=== PATIENT | female | born 1995 | race Caucasian/White ===

== ENCOUNTER 2024-03-15 16:40 | Inpatient (IN) | payer BC, SELFPAY ==
[2024-03-15] VITALS (12 sets, daily range): BP systolic 133–173; BP diastolic 83–102; PULSE 84–108; RESP 14–18; TEMP 36.4–36.8; O2SAT 98–100; BMI 34.7
--- NOTE | 2024-03-15 17:15 | PCM.HP.OB ---
HPI - General General Date of Admission: 03/15/24 HPI Narrative ASTRID ARCINIEGA, is a 28 F @ 38.5 weeks who presents for medically indicated induction of labor due to elevated blood pressures in the office. Patient was seen for routine visit had blood pressures in the office in severe range. Patient denies headaches, visual changes. She does have some swelling of the lower extremities. No vaginal bleeding, no leaking fluid no regular contractions. She had no protein appreciated in her urine dip. Patient was sent over for labor induction for gestational hypertension versus preeclampsia. Labs to be drawn on admission. NST FHR Rate Baby A Baseline: 135 Variability:: Moderate Accelerations:: 15 x 15 Decelerations:: None NST Reactive:: Yes FHR Category:: Category I Uterine Activity:: 2-3min Vital Signs Vital Signs Vital Signs: 03/15/24 17:07 03/15/24 17:07 03/15/24 17:12 Pulse Rate 108 H 103 H Pulse Ox 98 03/15/24 17:12 Pulse Rate Pulse Ox 98 Physical Exam Narrative /-2 Ext: LE swelling +2, DTR +2 Const alert and oriented x3 General Appearance: cooperative HEENT normocephalic GI GI Narrative: Gravid, non tender to palpation. OB / External & Speculum: external exam normal Extremity normal to inspection Skin no rashes or lesions noted Neuro oriented x3 and CN's II-XII intact bilaterally Psych Appearance: grossly normal Labs Labs Labs: No Data to Display Assessment & Plan (1) 38 weeks gestation of : (2) Pre-eclampsia affecting , antepartum: (3) Swelling of lower extremity during : QUALIFIERS: Trimester: third trimester Qualified Code(s): O12.03 - Gestational edema, third trimester PLAN: Plan Admit to L&D Montior FHR/TOCO Epidural if requested for pain Monitor VS Anticipate Dupree/pitocin PRE E labs- magnesium and Hypertensive protocol if indicated
[2024-03-15] MEDS: Lactated Ringers 1,000 ML 50 ML IV (17:25)
[2024-03-15] MEDS: 0.9% Normal Saline Single 100 ML IV.SOLN. INTRA-UTER (17:30)
--- NOTE | 2024-03-15 17:35 | PCM.PN.BLA ---
Progress Note transcervical arteaga placed without difficulty. Pt resting comfortably in bed. will start Pitocin.
[2024-03-15 17:54] LABS: Protein, Urine (Random) 18.9 mg/dL (<11.9); Protein:Creat Ratio 791 mg/g CRE (0-200)
[2024-03-15] MEDS: Oxytocin 15 Units/NS 250ml 15 UNITS/250 ML IV.SOLN 2 UNITS IV (17:58)
[2024-03-15 18:01] LABS: Absolute Lymphocyte Count 1.44 X10^3/uL (0.83-4.51); Absolute Neutrophil Count 7.6 X10^3/uL (2.0-7.7); Basophil# 0.02 X10^3/uL; Basophil% 0.2 % (0-1); Eosinophil# 0.05 X10^3/uL; Eosinophils% 0.5 % (0-5); Hematocrit 34.4 % (37-47); Hemoglobin 11.6 g/dL (12.0-15.0); Lymphocyte # 1.44 X10^3/ul (0.83-4.51); Lymphocyte % 14.4 % (19-41); Mean Corp Hgb Conc 33.7 g/dL (32-36); Mean Corpuscular Hgb 30.3 pg (27.0-32.0); Mean Corpuscular Volume 89.8 fL (81-99); Mean Platelet Vol. 9.7 fl (6.2-12.0); Monocyte# 0.88 X10^3/uL; Monocyte% 8.8 % (0-10); NRBC Flagged by Analyzer 0 % (0-5); Neutrophil # 7.55 X10^3/uL (2.7-7.7); Neutrophil % 75.5 % (47-70); Platelet Count 275 K/mm3 (150-450); RBC Distribution Width CV 15.9 % (11.6-14.6); Red Blood Count 3.83 M/mm3 (4.2-5.4)
[2024-03-15 18:31] LABS: AST(SGOT) 19 U/L (15-37); Alanine Aminotransfer ALT/SGPT 14 U/L (13-56); Creatinine, Serum 0.57 mg/dL (0.55-1.02); EST Glomerular Filtration Rate 132 mL/min (>60); Est Glom Filt Rate - Afr Amer 159 mL/min (>60); Estimated Creatinine Clearance 152.64 ml/min; Uric Acid 5.4 mg/dL (2.6-6.0)
[2024-03-15 18:45] LABS: Syphilis Antibodies Non-reactive
[2024-03-15] MEDS: NIFEdipine 30 MG Tablet PO (20:55)
[2024-03-16] VITALS (66 sets, daily range): BP systolic 114–173; BP diastolic 56–96; PULSE 86–115; RESP 14–18; TEMP 36.4–37.6; O2SAT 91–100
--- NOTE | 2024-03-16 08:24 | PCM.PN.BLA ---
Progress Note at bedside to check on pt. doing well without complaints. Physical Exam Const alert and no apparent distress General Appearance: comfortable Narrative: Cvx 3/60/-2, vertex and head well applied. Assessment & Plan Assessment/Plan (1) 38 weeks gestation of : PLAN: Discussed AROM and IUPC and patient agreeable. AROM performed in usual sterile fashion with return of clear fluid. IUPC placed easily. Category 1 tracing. BP's mild range. Pt plans epidural. Cont current management. (2) Pre-eclampsia affecting , antepartum:
[2024-03-16] MEDS: Lactated Ringers 1,000 ML 50 ML IV (08:48)
[2024-03-16] MEDS: LACTATED RINGERS 500 ML 999 ML IV ×2 (09:29→18:26)
[2024-03-16] MEDS: fentaNYL-bupivacaine (epidural) 100 ML BAG EPIDURAL ×3 (10:33→20:27)
[2024-03-16] MEDS: Ondansetron 4 MG/2 ML Vial IV ×2 (14:07→18:17)
[2024-03-16] MEDS: 0.9% Saline Lock 10 ML Syringe IV ×2 (14:07→18:17)
[2024-03-16] MEDS: Lactated Ringers 1,000 ML 200 ML IV ×3 (14:38→23:47)
[2024-03-16] MEDS: Oxytocin 15 Units/NS 250ml 15 UNITS/250 ML IV.SOLN 12 UNITS IV (15:15)
--- NOTE | 2024-03-16 16:50 | PCM.PN.BLA ---
Progress Note at bedside to check on pt. feeling pressure in her bottom. otherwise no complaints. Physical Exam Const alert and no apparent distress General Appearance: comfortable HEENT normocephalic Resp normal respiratory effort Narrative: Cvx 8/80/0, caput noted, more cervix noted along patient's right side. Assessment & Plan Assessment/Plan (1) 38 weeks gestation of : PLAN: Pad with scant dark red blood present on pad. Discussed concern that baby is asynclitic on exam. RN to continue with position changes. Scalp stim present with cervical exam. Blood pressures normal to mild range. Cont current management. (2) Pre-eclampsia affecting , antepartum: (3) Swelling of lower extremity during : QUALIFIERS: Trimester: third trimester Qualified Code(s): O12.03 - Gestational edema, third trimester
[2024-03-16] MEDS: Terbutaline 1 MG/ML Vial 0.25 MG SC (18:37)
--- NOTE | 2024-03-16 20:21 | PCM.PN.BLA ---
Progress Note At bedside to check on pt. She is now comfortable with second epidural. She offers no other complaints. Assessment & Plan Assessment/Plan (1) Swelling of lower extremity during : QUALIFIERS: Trimester: third trimester Qualified Code(s): O12.03 - Gestational edema, third trimester (2) Pre-eclampsia affecting , antepartum: (3) 38 weeks gestation of : PLAN: Patient is now comfortable after placement of second epidural. Cvx 8/90/0 and scant bloody show on pad. Pitocin has been off given uncontrolled pain and high resting uterine tone with ctx's q 1-2 min. Positive scalp stim on exam. Discussed restarting Pitocin. BP normal to mild range.
[2024-03-16] MEDS: Acetaminophen 500 MG Tablet PO (21:30)
[2024-03-16] MEDS: NIFEdipine 30 MG Tablet PO (22:01)
[2024-03-17] VITALS (24 sets, daily range): BP systolic 106–156; BP diastolic 71–104; PULSE 78–120; RESP 16–22; TEMP 36.1–37.1; O2SAT 93–100
--- NOTE | 2024-03-17 00:42 | PCM.PN.BLA ---
Progress Note at bedside to recheck pt. she is comfortable and offers no complaints. Assessment & Plan Assessment/Plan (1) Swelling of lower extremity during : QUALIFIERS: Trimester: third trimester Qualified Code(s): O12.03 - Gestational edema, third trimester (2) Pre-eclampsia affecting , antepartum: (3) 38 weeks gestation of : PLAN: Plan Cvx remains 8/80/0 and caput noted. The patient has now been 8 cm for 8 hours given Pitocin was turned off for 2 hours. Discussed recommendation for a section given arrest of descent. Discussed r/b/a section. Patient requests time to discuss with her .
--- NOTE | 2024-03-17 01:24 | PCM.PN.BLA ---
Progress Note at bedside to check on pt. she is doing well and reasonably anxious about a section. Assessment & Plan Assessment/Plan (1) Swelling of lower extremity during : QUALIFIERS: Trimester: third trimester Qualified Code(s): O12.03 - Gestational edema, third trimester (2) Pre-eclampsia affecting , antepartum: (3) 38 weeks gestation of : (4) Failure to progress in labor: PLAN: Discussed section and questions answered. Discussed r/b/a section. Patient desires to proceed. Ancef and Azithromycin ordered pre op. (5) Arrested labor:
[2024-03-17] MEDS: Cefazolin 2 GM in 0.9% Normal Saline (100mL Bag) 100 ML IV (01:33)
[2024-03-17] MEDS: Azithromycin 500 MG in Dextrose 5%-Water (250mL Bag) 250 ML 250 MG IV (02:52)
--- NOTE | 2024-03-17 02:59 | OP.PCM_ITS ---
Problems Associated Problem List Diagnoses (1) Arrested labor: (2) Failure to progress in labor: (3) Swelling of lower extremity during : (4) Pre-eclampsia affecting , antepartum: (5) 38 weeks gestation of : Report of Operation Date of Procedure: 03/17/24 Pre-Operative Diagnosis: 38 week gestation, pre eclampsia, induction of labor planned, failure to progress Post-Operative Diagnosis: As above Surgery/Procedure Performed:: PLTCS via pfannenstiel incision Description of Surgical Findings:: VMI in cephalic presentation. Normal appearing placenta with 3 VC. Normal appearing uterus and bilateral adnexa. Surgeon: Michelle Sharma automobile drivers: Yon BARRIENTOS Type of Anesthesia: Epidural Special Medications: None Specimen's removed: Placenta Drains: Dupree Estimated Blood Loss (mL): 700 Fluids Replaced: 1000 mL Description of Procedure: Indications: Arrest of dilation at 8 cm Procedure: Patient was taken to the operating room and prepped and draped in dorsal supine position with a leftward tilt in usual sterile fashion. After confirming adequate anesthesia, a pfannenstiel skin incision was made with a scalpel and carried down to the underlying layer of fascia. The fascia was incised in the midline and extended laterally using bartholomew scissors. The fascia was then dissected off the rectus muscles both cephalad and caudad using sharp dissection. The rectus muscles were in the midline. The peritoneum was entered bluntly with good visualization of the bladder. The peritoneal incision was extended with traction laterally. A bladder blade was inserted. A low transverse incision was made on the uterus with a scalpel. The uterine incision was extended with traction cephalad and caudad. The head was elevated out of the pelvis and delivered easily in flexed position. The shoulders and body of the were delivered without traction, force, or delay. The cord was clamped and cut immediately and handed off to awaiting nursery staff. The placenta was removed with manual extraction. The uterus was cleared of all clot and debris. The hysterotomy was closed with 1-0 Vicryl in a running locked fashion. Several additional figure of eight sutures were placed along the hysterotomy using 1-0 Vicryl to achieve hemostasis. The uterus was placed back into the abdomen. Arrista was placed over the lower uterus. Hemostasis was confirmed. The peritoneum was closed with 3-0 Vicryl in a running fashion. The subfascial space was examined and noted to be hemostatic. The fascia was closed with stratafix in a running fashion. The subcutaneous space was irrigated and noted to be hemostatic. The subcutaneous space was reapproximated using 3-0 Vicryl. The skin was closed with 4-0 Monocryl in a subcuticular fashion. A silver dressing was placed. Instrument, sponge, and needle counts were correct and the patient was taken to the recovery room in stable condition. Yon BARRIENTOS was present and assisted with draping the patient, delivery and closure. Grafts/Implants Used: None Procedure Start Time: 01:53 Procedure Stop Time: 02:47 Complications None Admit VTE Documentation VTE Present on Admission: No VTE Mechan Device Prophylaxis: SCD's
[2024-03-17] MEDS: Oxytocin 15 Units/NS 250ml 15 UNITS/250 ML IV.SOLN 83 UNITS IV (03:20)
[2024-03-17] MEDS: Ketorolac 30 MG/ML Syringe IV ×4 (03:33→22:01)
[2024-03-17] MEDS: Acetaminophen 500 MG Tablet 1000 MG PO ×4 (03:34→22:01)
[2024-03-17] MEDS: Lactated Ringers 1,000 ML 100 ML IV ×2 (06:24→13:39)
[2024-03-17] MEDS: Senna/Docusate Sodium 1 Tablet PO (09:14)
[2024-03-17 10:37] LABS: ALB/GLOB Ratio 0.5 RATIO (0.9-2.4); AST(SGOT) 22 U/L (15-37); Alanine Aminotransfer ALT/SGPT 13 U/L (13-56); Albumin, Serum 1.7 g/dL (3.2-5.0); Alkaline Phosphatase 164 U/L (45-117); Anion Gap 6 (5-15); BUN 13 mg/dL (7-18); Calcium,Total 8.2 mg/dL (8.5-10.1); Chloride 108 mmol/L (98-107); Creatinine, Serum 1.08 mg/dL (0.55-1.02); EST Glomerular Filtration Rate 63 mL/min (>60); Est Glom Filt Rate - Afr Amer 76 mL/min (>60); Estimated Creatinine Clearance 80.56 ml/min; Globulin 3.2 g/dL (2.2-4.2); Glucose 135 mg/dL (74-106); Potassium 4.1 mmol/L (3.5-5.1); Protein, Total 4.9 g/dL (6.4-8.2); Sodium Level 136 mmol/L (136-145)
[2024-03-17] MEDS: 0.9% Saline Lock 10 ML Syringe IV ×2 (17:28→22:01)
[2024-03-17] MEDS: NIFEdipine 30 MG Tablet PO (20:09)
[2024-03-18] VITALS: BP 118/72; PULSE 89; RESP 16; TEMP 36.3; O2SAT 96
[2024-03-18 02:55] VITALS: BP 111/60; PULSE 77; RESP 16; TEMP 36.4; O2SAT 97
[2024-03-18] MEDS: Ibuprofen 600 MG Tablet PO ×4 (02:58→23:01)
[2024-03-18] MEDS: Acetaminophen 500 MG Tablet 1000 MG PO ×3 (05:00→19:02)
[2024-03-18 05:21] LABS: Hematocrit 27.9 % (37-47); Hemoglobin 9.3 g/dL (12.0-15.0); Mean Corp Hgb Conc 33.3 g/dL (32-36); Mean Corpuscular Hgb 30.8 pg (27.0-32.0); Mean Corpuscular Volume 92.4 fL (81-99); Mean Platelet Vol. 9.4 fl (6.2-12.0); Platelet Count 177 K/mm3 (150-450); RBC Distribution Width CV 16.5 % (11.6-14.6); RBC Distribution Width SD 56.5 fl (35.1-43.9); Red Blood Count 3.02 M/mm3 (4.2-5.4); White Blood Count 15.1 K/mm3 (4.4-11.0)
[2024-03-18 07:45] VITALS: BP 124/77; PULSE 83; RESP 16; TEMP 36.6; O2SAT 98
--- NOTE | 2024-03-18 08:43 | PN.OBGYN_ITS ---
Subjective Subjective Feeling good. Sore but pain controlled. Ambulating and voiding without difficulty. Breast feeding. BP stable on procardia Objective Data Objective Data Vital Signs: Vital Signs Temp Pulse Resp BP Pulse Ox O2 Del Method 97.8 F 83 16 124/77 H 98 Room Air 03/18/24 07:45 03/18/24 07:45 03/18/24 07:45 03/18/24 07:45 03/18/24 07:45 03/18/24 07:45 Oxygen Delivery Method Room Air Weight: 88.9 kg Body Mass Index (BMI) 34.7 Intake & Output: Intake and Output for Last 24 Hours 03/16/24 03/17/24 03/18/24 23:59 23:59 23:59 Intake Total 4722.46 / 4722.46 2708.73 / 2708.73 Output Total 275 / 275 2400 / 2400 601 / 601 Balance 4447.46 / 4447.46 308.73 / 308.73 -601 / -601 Lab / Micro Data 03/18/24 05:04 03/17/24 09:30 Labs: Laboratory Results - last 24 hr 03/17/24 09:30: Sodium 136, Potassium 4.1, Chloride 108 H, Carbon Dioxide 22.0, Anion Gap 6, BUN 13, Creatinine 1.08 H, Estim Creat Clear Calc 80.56, Est GFR (MDRD) Af Amer 76, Est GFR (MDRD) Non-Af 63, BUN/Creatinine Ratio 12.0, Glucose 135 H, Calcium 8.2 L, Total Bilirubin 2.20 H, AST 22, ALT 13, Alkaline Phosphatase 164 H, Total Protein 4.9 L, Albumin 1.7 L, Globulin 3.2, A lbumin/Globulin Ratio 0.5 L 03/18/24 05:04: WBC 15.1 H, RBC 3.02 L, Hgb 9.3 L, Hct 27.9 L, MCV 92.4, MCH 30.8, MCHC 33.3, RDW Std Deviation 56.5 H, RDW Coeff of Min 16.5 H, Plt Count 177, MPV 9.4 ROS Constitutional Constitutional: Denies fatigue, fever(s) or malaise Eyes Eyes: Denies change in vision ENT HEENT: Denies dizziness or headache(s) Cardiovascular Cardiovascular: Denies chest pain, dyspnea or lightheadedness Respiratory/Chest Respiratory/Chest: Denies cough or dyspnea Gastrointestinal Gastrointestinal: Denies change in bowel habits Genitourinary Genitourinary: Denies burning urination or genital lesions Integumentary Integumentary: Denies rash Neurologic Neurologic: Denies confusion, dizziness, headache(s), numbness or weakness Physical Exam Const alert and no apparent distress General Appearance: cooperative HEENT normocephalic Resp normal respiratory effort Cardio regular rate GI soft to palpation GI Narrative: gravid, nontender, appropriate for gestational age Extremity no calf tenderness General Extremity: edema Skin no wounds Rashes: No rashes noted Psych activity/motor behavior normal Assessment & Plan (1) S/P : (2) Pre-eclampsia affecting , antepartum:
--- NOTE | 2024-03-18 08:43 | DS.PCM_ITS ---
Providers Date of Admission: 03/15/24 Primary Care Physician: No Primary Care Phys Reason For Visit: C SECTION Diagnosis Discharge Diagnosis (1) Arrested labor: Status: Acute Code(s): O62.1 - Secondary uterine inertia (2) Failure to progress in labor: Status: Acute Code(s): O62.2 - Other uterine inertia (3) Swelling of lower extremity during : Status: Acute Code(s): O12.00 - Gestational edema, unspecified trimester Qualifiers: Trimester: third trimester Qualified Code(s): O12.03 - Gestational edema, third trimester (4) Pre-eclampsia affecting , antepartum: Status: Acute Code(s): O14.90 - Unspecified pre-eclampsia, unspecified trimester (5) 38 weeks gestation of : Status: Acute Code(s): Z3A.38 - 38 weeks gestation of Medications at Discharge Home Medications vitamin#30 30 mg iron-10 mg iron-folic acid 1 mg-omg3 capsule (OB Complete With Dha) 1 cap PO DAILY 03/15/24 Weight / BMI Weight Weight: 88.9 kg Body Mass Index (BMI) 34.7 ABG / Lab / Microbiology Data 03/18/24 05:04 03/17/24 09:30 Laboratory: Laboratory Results - last 24 hr 03/17/24 09:30: Sodium 136, Potassium 4.1, Chloride 108 H, Carbon Dioxide 22.0, Anion Gap 6, BUN 13, Creatinine 1.08 H, Estim Creat Clear Calc 80.56, Est GFR (MDRD) Af Amer 76, Est GFR (MDRD) Non-Af 63, BUN/Creatinine Ratio 12.0, Glucose 135 H, Calcium 8.2 L, Total Bilirubin 2.20 H, AST 22, ALT 13, Alkaline Phosphatase 164 H, Total Protein 4.9 L, Albumin 1.7 L, Globulin 3.2, A lbumin/Globulin Ratio 0.5 L 03/18/24 05:04: WBC 15.1 H, RBC 3.02 L, Hgb 9.3 L, Hct 27.9 L, MCV 92.4, MCH 30.8, MCHC 33.3, RDW Std Deviation 56.5 H, RDW Coeff of Min 16.5 H, Plt Count 177, MPV 9.4 Meaningful Use Info Ischemic Stroke Statin Dosing Therapy Reference: STATIN DOSE THERAPY REFERENCE: * Patients > 75 years receive moderate or high dose statin therapy. * Patients 75 years or YOUNGER should receive HIGH intensity statin dose unless contraindicated. You will be required to document reason for non-treatment if statin daily dose does not meet guidelines. HIGH DOSE STATIN THERAPY DAILY Atorvastatin > than or = to 40 mg Rosuvastatin > than or = to 20 mg Amlodipine + Atorvastatin > than or = to 2.5/40 mg Ezetimibe + Simvastatin 10/80 mg Simvastatin 80mg Discharge Plan Admission Admit Date/Time: 03/15/24 16:40 Attending Provider: Michelle Sharma Primary Care Provider: Care Physician,Shelli Primary Discharge Orders/Prescriptions Prescriptions: No Action OB Complete With Dha 30 mg iron-10 mg iron-1 mg capsule 1 cap PO DAILY Referrals / Follow Up: Care Physician,No Primary [Primary Care Provider] -
[2024-03-18] MEDS: Senna/Docusate Sodium 1 Tablet PO (09:53)
[2024-03-18 12:15] VITALS: BP 122/76; PULSE 87; RESP 16; TEMP 37; O2SAT 98
[2024-03-18 15:31] VITALS: BP 126/85; PULSE 86; RESP 16; TEMP 36.8; O2SAT 98
[2024-03-18 20:00] VITALS: BP 150/87; PULSE 85; RESP 16; TEMP 36.9; O2SAT 98
[2024-03-18] MEDS: NIFEdipine 30 MG Tablet PO (20:03)
[2024-03-19] MEDS: Acetaminophen 500 MG Tablet 1000 MG PO ×3 (01:17→14:12)
[2024-03-19 01:18] VITALS: BP 124/78; PULSE 86; RESP 16; TEMP 36.6; O2SAT 96
[2024-03-19] MEDS: Ibuprofen 600 MG Tablet PO ×2 (04:34→11:15)
--- NOTE | 2024-03-19 08:07 | PCM.PN.OB ---
Subjective Subjective Feeling good. Sore but pain controlled. Ambulating and voiding without difficulty. Breast feeding. BP stable on procardia Objective Data Objective Data Vital Signs: Vital Signs Temp Pulse Resp BP Pulse Ox O2 Del Method 97.8 F 86 16 124/78 H 96 Room Air 03/19/24 01:18 03/19/24 01:18 03/19/24 01:18 03/19/24 01:18 03/19/24 01:18 03/19/24 01:18 Oxygen Delivery Method Room Air Weight: 88.9 kg Body Mass Index (BMI) 34.7 Intake & Output: Intake and Output for Last 24 Hours 03/17/24 03/18/24 03/19/24 23:59 23:59 23:59 Intake Total 2708.73 / 2708.73 Output Total 2400 / 2400 601 / 601 Balance 308.73 / 308.73 -601 / -601 Lab / Micro Data 03/18/24 05:04 03/17/24 09:30 ROS Constitutional Constitutional: Denies fatigue, fever(s) or malaise Eyes Eyes: Denies change in vision ENT HEENT: Denies dizziness or headache(s) Cardiovascular Cardiovascular: Denies chest pain, dyspnea or lightheadedness Respiratory/Chest Respiratory/Chest: Denies cough or dyspnea Gastrointestinal Gastrointestinal: Denies change in bowel habits Genitourinary Genitourinary: Denies burning urination or genital lesions Integumentary Integumentary: Denies rash Neurologic Neurologic: Denies confusion, dizziness, headache(s), numbness or weakness Physical Exam Const alert General Appearance: cooperative GI GI Narrative: soft, moderate distention, fundus firm, appropriately tender. Abdominal bandage clean dry and intact Assessment & Plan (1) S/P : PLAN: Plan Discharge home. Breast feeding appointment scheduled
--- NOTE | 2024-03-19 08:09 | DS.PCM_ITS ---
Providers Date of Admission: 03/15/24 Date of Discharge: 03/19/24 Primary Care Physician: No Primary Care Phys Reason For Visit: C SECTION Diagnosis Discharge Diagnosis (1) S/P : Status: Acute Code(s): Z98.891 - History of uterine scar from previous surgery Plan Discharge home. Breast feeding appointment scheduled Medications at Discharge Home Medications vitamin#30 30 mg iron-10 mg iron-folic acid 1 mg-omg3 capsule (OB Complete With Dha) 1 cap PO DAILY 03/15/24 Hospital Course Operations section Procedures None Summary of Care Provided Minutes Spent on Discharge: 22 Hospital Course: Admitted for elevated BP. IOL with failure to progress and then primary c- section. without complication. Breast feeding. Physical Exam Const alert General Appearance: cooperative GI GI Narrative: soft, moderate distention, fundus firm, appropriately tender. Abdominal bandage clean dry and intact Weight / BMI Weight Weight: 88.9 kg Body Mass Index (BMI) 34.7 ABG / Lab / Microbiology Data 03/18/24 05:04 03/17/24 09:30 D/C Instructions Discharge Diet: No restrictions May resume sexual activity in: 4-6 weeks Lifting Restrictions: 20 pounds Additional Activity Instructions: Nothing in the vagina for 4-6 weeks. You may return to work/school in 6 weeks. Call your doctor if your incision/area has: Continuous Slow Oozing, Sudden Increased Bleeding, Increased Pain/ Swelling, Increased Redness and Foul Smelling Discharge Call your doctor if you observe: Fever of 101 or Higher and Using more than 1 pad per hour (for 2 hours) Suture Line Care: Avoid Pulling/Pushing and Avoid Pinching/Bending Cleanse incision/area with: Keep Dressing Clean & Dry Please Follow Up With: Amelia Wilson MD When: Call to make an appointment for an incision check in 1-2 [phone]. You will need a post check in 6 weeks. Meaningful Use Info Meaningful Use Meaningful Use Diagnoses (Choose all that apply): None applicable Ischemic Stroke Statin Dosing Therapy Reference: STATIN DOSE THERAPY REFERENCE: * Patients > 75 years receive moderate or high dose statin therapy. * Patients 75 years or YOUNGER should receive HIGH intensity statin dose unless contraindicated. You will be required to document reason for non-treatment if statin daily dose does not meet guidelines. HIGH DOSE STATIN THERAPY DAILY Atorvastatin > than or = to 40 mg Rosuvastatin > than or = to 20 mg Amlodipine + Atorvastatin > than or = to 2.5/40 mg Ezetimibe + Simvastatin 10/80 mg Simvastatin 80mg Discharge Plan Admission Admit Date/Time: 03/15/24 16:40 Primary Reason for Your Visit: labor Attending Provider: Michelle Sharma Primary Care Provider: Care Physician,Shelli Primary Discharge Orders/Prescriptions Prescriptions: No Action OB Complete With Dha 30 mg iron-10 mg iron-1 mg capsule 1 cap PO DAILY Referrals / Follow Up: Care Physician,No Primary [Primary Care Provider] - Disposition Disposition (needs filled in before D/C Order can be placed): Home, Self Care
[2024-03-19] MEDS: Senna/Docusate Sodium 1 Tablet PO (08:21)
[2024-03-19 09:00] VITALS: BP 130/91; PULSE 71; RESP 18; TEMP 36.8; O2SAT 99
[2024-03-19 13:00] VITALS: BP 140/91; PULSE 72; RESP 16; TEMP 37.1; O2SAT 98
--- NOTE | 2024-03-20 05:12 | CON.PCM.LA_ITS ---
Assessment & Plan Assessment/Plan (1) Care and examination of lactating mother: PLAN: Feeding plan as listed below. HPI Consult Data Date of Consult: 03/20/24 HPI Narrative HPI Narrative: ASTRID ARCINIEGA, is a 28 F who presents assessment, latching difficulty. Patient and baby being discharged today. [facility] Medical History (Updated 03/20/24 @ 05:15 by Maite Zimmer CLAY [employer]Y PRESS MIXER OPERATOR, CLAY [employer]Y PRESS MIXER OPERATOR-C) Care and examination of lactating mother Home Medications ?Medication ?Instructions ?Recorded ?Last Taken ?Type vitamin#30 30 mg iron-10 1 cap PO DAILY 03/15/24 03/14/24 History mg iron-folic acid 1 mg-omg3 capsule (OB Complete With Dha) Allergy/AdvReac Type Severity Reaction Status Date / Time No Known Allergies Allergy Verified 03/15/24 20:54 Surgical History (Updated 03/18/24 @ 10:[address] Gosia Wooten MD) History of surgery Social History Smoking Status: Never smoker ROS Integumentary Integumentary: Reports other Details: q2-3 hours, having to pump to help marti nipples then use shield, baby able to latch well to shield and able to see colostrum in shield and hear swallowing coming up with feeding plan for discharge Exam General alert and no apparent distress Respiratory Respiratory: normal respiratory effort Skin normal color Feeding Assessment Feeding Assessment Feed Type: Breastmilk [place] Feeding Methods: Breast Breast-fed on which sides:: Both Position: Cross cradle Latch Score L - Latch Latch: Grasps breast, tongue down, lips flanged, rhymic sucking (2) A - Audible Swallowing Audible Swallowing: Spontaneous & intermittent <24 hrs, spontaneous & frequent >24 hrs (2) T - Type of Nipple Type of Nipple: Everted (after stimulation) (2) C - Comfort (Breast/Nipple) Comfort (Breast/Nipple): Filling/reddened/small blisters/bruises/mild/moderate discomfort (1) H - Hold (Positioning) Hold (Positioning): Minimal assist, teach/hold one side and mother does other (1) Total Score Total Score:: 8 Observation Feeding Observed:: Yes IBCLC Feeding Assessment Feeding Assessment Mother's feeding plans during 's hospitalization: Breastfeed Feeding Plan Feeding Plan: Plan to feed q2-3 hours, offering both sides with each feed. Motif pump set up and reviewed settings. Feeding plan provided to family tonight and educated on syringes / cup if needed if baby having trouble latching. Follow up appointment tomorrow at 9 AM. Interventions IBCLC/CLC Interventions: Nipple shield, Pumping, Hand expression and Schedule outpatient consult Education IBCLC/CLC Education: [id number], Feeding on demand, Risks of nipple shield use, Use of breast pump and Keep a feeding log Charges/Coding Visit Charges Inpatient E&M: 51478 Init Hosp L1
== END 2024-03-19 15:15 | disposition home or self-care (01) | DRG 788 ==
PROVIDERS: Obstetrics & Gynecology; Admitting Provider Obstetrics & Gynecology; Referring Provider Obstetrics & Gynecology; Visit Provider Obstetrics & Gynecology
DX: O62.1 Secondary uterine inertia (principal); O14.94 Unspecified pre-eclampsia, complicating childbirth; O12.04 Gestational edema, complicating childbirth; Z37.0 Single live birth; Z3A.38 38 weeks gestation of pregnancy
CPT/HCPCS: 59025; 59050; 80053; 82565; 82570; 84156; 84450; 84460; 84550; 85025; 85027; 86780; 86850; 86900; 86901; 99221; J7120; A4216; G0378; J2405; J3490